=== PATIENT | male | born 1940 | race Native Hawaiian/Other Pacific Islander ===

== ENCOUNTER 2018-12-26 22:16 | Emergency (ER) | payer OTHER ==
[~2018-12-26] VITALS: Ht 160 cm; Wt 83.9 kg
[2018-12-26 22:16] VITALS: BP 174/82; TEMP 98.1
[2018-12-26 23:16] LABS: PLATELET COUNT 179 K/uL (142-355)
[2018-12-26 23:45] LABS: POTASSIUM 3.8 mmol/L (3.6-5.2)
[2018-12-27] MEDS ORDERED: AMLODIPINE BESYLATE PO (01:44)
[2018-12-27] MEDS ORDERED: ASPIRIN/ENTERIC81 MG PO (01:47)
[2018-12-27] MEDS ORDERED: DOCU100C10 PO (01:48)
[2018-12-27] MEDS ORDERED: CARV25TA PO (01:50)
[2018-12-27] MEDS ORDERED: TRICOR145 M1 PO (01:52)
[2018-12-27] MEDS ORDERED: FE TABS325 MG PO (01:56)
[2018-12-27] MEDS ORDERED: EUTHYROX50 MCG PO (02:01)
[2018-12-27] MEDS ORDERED: LINZESS72 MCG PO (02:03)
[2018-12-27] MEDS ORDERED: MULT VITAMI1 PO (02:04)
[2018-12-27] MEDS ORDERED: OXYB5TAB64 PO (02:06)
[2018-12-27] MEDS ORDERED: REFRES2 OPTH (02:10)
[2018-12-27] MEDS ORDERED: TAMS0.4C PO (02:11)
[2018-12-27] MEDS ORDERED: MAPAP325 MG PO (02:13)
[2018-12-27] MEDS ORDERED: VYTORIN1 TAB PO (02:16)
[2018-12-27] MEDS ORDERED: XANAX XR0.5 MG PO (02:17)
[2018-12-27] MEDS ORDERED: FERROUS SULF325 M1 PO (02:25)
[2018-12-27] MEDS ORDERED: EZETIMIBE/SIMVA1 TA1 PO (02:35)
[2019-01-02] MEDS ORDERED: ESCI10TA PO (20:09)
[2019-01-02] MEDS ORDERED: RISP0.25 PO (20:09)
== END 2018-12-27 00:23 | disposition other institution (70) ==
LOC: ED 22:25
PROVIDERS: Emergency Medicine
DX: E86.0 Dehydration (principal); Z04.6 Encounter for general psychiatric examination, requested by authority
CPT/HCPCS: 36415; 80053; 83036; 85027; 93005; 99285